=== PATIENT | female | born 1985 | race African-American/Black ===

== ENCOUNTER 2019-11-15 13:11 | Emergency (ER) | payer MEDICAID ==
[~2019-11-15] VITALS: Ht 165.1 cm; Wt 116.1 kg
--- OUTSIDE RECORDS SUMMARY | ~2019-11-15 | XMS | Encounter Summary ---
Demographics + + + | Address | [address] | | | [place] [address] | + + + | Home Phone | [phone] | + + + | Preferred Language | Unknown | + + + | Marital Status | Never | + + + | Gnosticism Affiliation | Unknown | + + + | Race | Unknown | + + + | Ethnic Group | Unknown | + + + Author + + + | Author | | + + + | Organization | | + + + | Address | [address] | | | [place] [address] | + + + | Phone | [phone] | + + + Care Team Providers + +------+ + | Care Director Of Infection Control Name | Role | Phone | + +------+ + | VAL Edwards | 3 | Unavailable | + +------+ + Reason for Visit + + | None recorded. | + + Instructions + + | 1. Lumbar radiculopathy | + + | urinalysis, dipstick, auto | + + | test, urine | + + | ketorolac 60 mg/2 mL intramuscular solution | + + | orphenadrine citrate 30 mg/mL injection solution | + + | cyclobenzaprine 10 mg tablet | + + | excuse from work | + + + + | Discussion Note | + + | Patient advised to followup if symptoms are not improving in 3 days, if symptoms worsen, | | or if new symptoms develop. | + + Plan of Care + + + + + | Reminders | | | Provider | | | | | | + + + + + | Appointments | None recorded. | | | + + + + + | Lab | Urinalysis, | 08/20/2016 | [facility] | | | Dipstick, Auto | | [facility] | + + + + + | | Test, | 08/20/2016 | [facility] | | | Urine | | [facility] | + + + + + | Referral | None recorded. | | | + + + + + | Procedures | None recorded. | | | + + + + + | Surgeries | None recorded. | | | + + + + + | Imaging | None recorded. | | | + + + + + Medications + + + + | Name | Start Date | | | | | | + + + + + +---+ | Adderall | | + +---+ | cyclobenzaprine 10 mg tablet Take 1 tablet | | | 3 times a day by oral route as needed. | | + +---+ | fluoxetine 10 mg capsule | | | Take 1 capsule every day by oral route. | | + +---+ | ketorolac 60 mg/2 mL intramuscular | | | solution Give 60mg IM now | | + +---+ | lithium carbonate ER 450 mg | | | tablet,extended release Take 3 tablets | | | every day by oral route. | | + +---+ | olanzapine 5 mg disintegrating tablet | | | PLACE 1-2 TABLET (5 MG) ON TOP OF THE | | | TONGUE WHERE IT WILL DISSOLVE, THEN | | | SWALLOW BY TRANSLINGUAL ROUTE ONCE DAILY | | + +---+ | orphenadrine citrate 30 mg/mL injection | | | solution Give 60mg IM now | | + +---+ Medications Administered + + + + | Name | Date | | + + + + + + + | ketorolac 60 mg/2 mL intramuscular | [id number] | | solutionGive 60mg IM now | | + + + | orphenadrine citrate 30 mg/mL injection | [id number] | | solutionGive 60mg IM now | | + + + Vitals + + + + + | Height | Weight | BMI | Blood Pressure | + + + + + | 5 ft 4 in | 194 lbs | 33.3 kg/m2 | 152/80 mm[Hg] | + + + + + Lab Results +-------+-------+-------+-------+-------+-------+-------+-------+-------+-------+-------+ | Date | Name | Speci | Resul | Inter | Descr | Value | Range | Statu | Addre | | | | | men | t | preta | iptio | | | s | ss | | | | | | | tion | n | | | | | | | | | | | | | | | | | | | | | | | | | | | | | | | | | | | | | | | | | | | | | | | | | | | | | | +-------+-------+-------+-------+-------+-------+-------+-------+-------+-------+-------+ +---+--------+---+---+---+--------+--------+---+---+--------+ | | Urinal | | | | Color | Yellow | | | Evergr | | | ysis, | | | | | | | | een | | | Dipsti | | | | | | | | Family | | | ck, | | | | | | | | | | | Auto | | | | | | | | Medici | | | | | | | | | | | ne PC: | | | | | | | | | | | [address] | [address] | | | | | | | | | | | [address] | | | | | | | | | | | [address] | | | | | | | | | | | [address], | | | | | | | | | | | [place] | | | | | | | | | | | rg | +---+--------+---+---+---+--------+--------+---+---+--------+ | | | | | | | Clear | | | Evergr | | | | | | | Clarit | | | | een | | | | | | | y | | | | Family | | | | | | | | | | | | | | | | | | | | | | Medici | | | | | | | | | | | ne PC: | | | | | | | | | | | [address] | | | [address] | [address] | | | | | | | | | | | [address] | | | | | | | | | | | [address] | | | | | | | | | | | [address], | | | | | | | | | | | [place] | | | | | | | | | | | rg | +---+--------+---+---+---+--------+--------+---+---+--------+ | | | | | | | Negati | | | Evergr | | | | | | | Glucos | ve | | | een | | | | | | | e | | | | Family | | | | | | | | | | | | | | | | | | | | | | Medici | | | | | | | | | | | ne PC: | | | | | | | | | | | [address] | | | [address] | | | | | | | | | | | [address] | | | | | | | | | | | [address] | | | | | | | | | | | [address], | | | | | | | | | | | [place] | | | | | | | | | | | rg | +---+--------+---+---+---+--------+--------+---+---+--------+ | | | | | | | Small | | | Evergr | | | | | | | Biliru | | | | een | | | | | | | bin | | | | Family | | | | | | | | | | | | | | | | | | | | | | Medici | | | | | | | | | | | ne PC: | | | | | | | | | | | [address] | | | | | | | | | | | [address] | | | | | | | | | | | [address] | | | | | | | | | | | [address], | | | | | | | | | | | [place] | | | | | | | | | | | rg | +---+--------+---+---+---+--------+--------+---+---+--------+ | | | | | | | Negati | | | Evergr | | | | | | | Ketone | ve | | | een | | | | | | | s | | | | Family | | | | | | | | | | | | | | | | | | | | | | Medici | | | | | | | | | | | ne PC: | | | | | | | | | | | [address] | [address] | | | | | | | | | | | [address] | | | | | | | | | | | [address] | | | | | | | | | | | [address], | | | | | | | | | | | [place] | | | | | | | | | | | rg | +---+--------+---+---+---+--------+--------+---+---+--------+ | | | | | | | 1.030 | | | Evergr | | | | | | | Specif | | | | een | | | | | | | ic | | | | Family | | | | | | | Gravit | | | | | | | | | | | y | | | | Medici | | | | | | | | | | | ne PC: | | | | | | | | | | | [address] | [address] | [address] | | | | | | | | | | | [address] | | | | | | | | | | | [address] | | | | | | | | | | | [address], | | | | | | | | | | | [place] | | | | | | | | | | | rg | +---+--------+---+---+---+--------+--------+---+---+--------+ | | | | | | Blood | Small | | | Evergr | | | | | | | | | | | een | | | | | | | | | | | Family | | | | | | | | | | | | | | | | | | | | | | Medici | | | | | | | | | | | ne PC: | | | | | | | | | | | [address] | | | | | | | | | | | [address] | | | | | | | | | | | [address] | | | | | | | | | | | [address], | | | | | | | | | | | [place] | | | | | | | | | | | rg | +---+--------+---+---+---+--------+--------+---+---+--------+ | | | | | | Ph | 5.5 | | | Evergr | | | | | | | | | | | een | | | | | | | | | | | Family | | | | | | | | | | | | | | | | | | | | | | Medici | | | | | | | | | | | ne PC: | | | | | | | | | | | [address] | | | | | | | | | | | [address] | | | | | | | | | | | [address] | | | | | | | | | | | [address], | | | | | | | | | | | [place] | | | | | | | | | | | rg | +---+--------+---+---+---+--------+--------+---+---+--------+ | | | | | | | 30+ | | | Evergr | | | | | | | Protei | | | | een | | | | | | | n | | | | Family | | | | | | | | | | | | | | | | | | | | | | Medici | | | | | | | | | | | ne PC: | | | | | | | | | | | [address] | | | [address] | [address] | | | | | | | | | | | [address] | | | | | | | | | | | [address] | | | | | | | | | | | [address], | | | | | | | | | | | [place] | | | | | | | | | | | rg | +---+--------+---+---+---+--------+--------+---+---+--------+ | | | | | | | 0.2 | | | Evergr | | | | | | | Urobil | | | | een | | | | | | | inogen | | | | Family | | | | | | | | | | | | | | | | | | | | | | Medici | | | | | | | | | | | ne PC: | | | | | | | | | | | [address] | | | | | | | | | | | [address] | | | | | | | | | | | [address] | | | | | | | | | | | [address], | | | | | | | | | | | [place] | | | | | | | | | | | rg | +---+--------+---+---+---+--------+--------+---+---+--------+ | | | | | | | Negati | | | Evergr | | | | | | | Nitrat | ve | | | een | | | | | | | e | | | | Family | | | | | | | | | | | | | | | | | | | | | | Medici | | | | | | | | | | | ne PC: | | | | | | | | | | | [address] | | | [address] | | [address] | | | | | | | | | | | [address] | | | | | | | | | | | [address] | | | | | | | | | | | [address], | | | | | | | | | | | [place] | | | | | | | | | | | rg | +---+--------+---+---+---+--------+--------+---+---+--------+ | | | | | | | Trace | | | Evergr | | | | | | | Leukoc | | | | een | | | | | | | ytes | | | | Family | | | | | | | | | | | | | | | | | | | | | | Medici | | | | | | | | | | | ne PC: | | | | | | | | | | | [address] | | [address] | | [address] | | | | | | | | | | | [address] | | | | | | | | | | | [address] | | | | | | | | | | | [address], | | | | | | | | | | | [place] | | | | | | | | | | | rg | +---+--------+---+---+---+--------+--------+---+---+--------+ Allergies +------+ + + + +-------+ | Code | Code System | Name | Reaction | Severity | Onset | +------+ + + + +-------+ | | | Influenza | | | | | | | Virus | | | | | | | Vaccines | | | | +------+ + + + +-------+ Problems + + + + + + | Name | Status | Onset Date | Source | | | | | | | | + + + + + + + +--------+ +---+ | Bipolar Disorder | Active | 10/19/2015 | | + +--------+ +---+ | Schizoaffective | Active | 06/10/2016 | | | Disorder | | | | + +--------+ +---+ | History of Alcohol | Active | | | | Abuse | | | | + +--------+ +---+ | History of Cannabis | Active | | | | Abuse | | | | + +--------+ +---+ Procedures + + + + + | Date | Name | Performed by | | | | | | | + + + + + +---+ + + | | Other Procedure | Information not available | +---+ + + | | Tonsillectomy | Information not available | +---+ + + Vaccine List None recorded. Social History + + +---+ | Smoking Status | Heavy Tobacco Smoker (02/07 | | | | PPD) | | + + +---+ Past Encounters + -------+ | 08/20/2016Lumbar RadiculopathyChenelle Irma, MARIAA: [address], | | [place] [address], Ph. | |Perla MARIAA Solis: [address], [place] [address], Ph. [phone] | + -------+ | 08/17/2016Thoracic NeuritisCharles LEE Sorenson: [address], [place], | | [place] [address], Ph. | |Andrzej Sorenson PA-C: [address], [place] [address], Ph. | + -------+ History of Present Illness Note:31 yo female here for recheck of back pain and right hip pain x 5 days. "Rig ht low back pain radiating around to hip and lateral thigh." Pt seen on 08/17 by Yas. Dx of Thoracic Neuritis. Administered Toradol and Norflex atos. . Pt states the pain got a bit better that night but the pain returned. Denies , n/t/w of the legs. No changes in bowel or bladder habits. Pain worse with sitting, bending and transitioning.Review of Systems:ROS as noted in the HPI Review of Systems None recorded. Physical Exam + + + | | General Adult Exam | + + + | Reported By: | Patient | + + + | Constitutional: | General Appearance: awake, alert, oriented | | | x 3, NAD, hydrated | + + + | Cardiovascular: | Heart: regular heart rate, no murmurs | + + + | Lungs: | Chest/Lungs: clear to auscultation | + + + | Skin: | Skin: clear | + + + | Notes: | <p>Lumbar spine: </p><p>General | | | appearance: A&O x 3, NAD, hydrated. | | | </p><p>Spine: No lateral shift present. | | | </p><p>Transitions in a gaurded | | | fashion</p><p>No bony tenderness or | | | alignment abnormality. Paraspinal | | | tenderness adjacent to L45 | | | right</p><p>Lower extremity strength and | | | sensation intact. </p><p>Positive SLR | | | right</p><p>Lower extremities: no swelling | | | or varicosities. </p> | + + +
--- OUTSIDE RECORDS SUMMARY | ~2019-11-15 | XMS | Continuity of Care Document ---
Demographics + + + | Address | [address] | | | [place] [address] | + + + | Home Phone | | + + + | Preferred Language | Unknown | + + + | Marital Status | Unknown | + + + | Religion Affiliation | Unknown | + + + | Race | Unknown | + + + | Ethnic Group | Unknown | + + + Author + + + | Author | [facility] | + + + | Organization | [facility] | + + + | Address | [address] | | | [place] [address] | + + + | Phone | | + + + Support + + + + + | Name | Relationship | Address | Phone | + + + + + | VAL Rosales | Caregiver | [address] | | | | | [place] [address] | | + + + + + | Agueda Jonas | Caregiver | Emergency | | | | | [facility], | | | | | [place] [address] | | + + + + + | FLOR OLIVA | Next Of [facility] | [place] [address] | | + + + + + Care Team Providers + + + + | Care Alligator Hunter Name | Role | Phone | + + + + | VAL Rosales | Unavailable | | + + + + Insurance Providers + + + + + | Payer Name | Policy Number | Subscriber Name | Relationship | + + + + + | [employer] | | LYDIA KINCAID | SELF | | | | BILLIONS | | + + + + + Chief Complaint and Reason for Visit + + + | Reason for Visit | PANIC ATTACK | + + + Problems Active Medical Problems + + + +--------+ | Problem | Onset Date | Recorded Date | Status | + + + +--------+ | Bipolar disorder | Unknown | 09/19/15 | Active | + + + +--------+ | Toothache | Unknown | 03/25/16 | Active | + + + +--------+ | Dental caries | Unknown | 03/25/16 | Active | + + + +--------+ | Anxiety | Unknown | 12/05/16 | Active | + + + +--------+ Medications Current Home Medications + +------+ +---------+ + + + + | Medicati | Dose | Units | Route | Directio | Days/Qty | Instruct | Start | | on | | | | ns | | ions | Date | + +------+ +---------+ + + + + | Amoxicil | 1 | EACH | ORAL | Twice | 10 Days | | 03/25/16 | | quinton/Pota | | | | Each Day | | | | | ssium | | | | | | | | | Clav | | | | | | | | | (Augment | | | | | | | | | in | | | | | | | | | 875-125 | | | | | | | | | Tablet) | | | | | | | | | 1 EACH | | | | | | | | | TABLET | | | | | | | | + +------+ +---------+ + + + + | CHLORHEX | 1 | ML | MISCELL | | | | | | IDINE | | | | | | | | | (CHLORHE | | | | | | | | | XIDINE | | | | | | | | | FLAVOR) | | | | | | | | | 1 ML | | | | | | | | | LIQUID | | | | | | | | + +------+ +---------+ + + + + | Ibuprofe | 800 | MG | ORAL | Every 8 | 14 | | 03/25/16 | | n | | | | Hours as | | | | | (Motrin) | | | | needed | | | | | 800 MG | | | | for Pain | | | | | TAB | | | | | | | | + +------+ +---------+ + + + + | [place] | 300 | MG | ORAL | | | | | | Carbonat | | | | | | | | | e 300 MG | | | | | | | | | CAP | | | | | | | | + +------+ +---------+ + + + + | Lorazepa | 1 | MG | ORAL | Daily as | 5 | | 12/05/16 | | m | | | | needed | | | | | (Ativan) | | | | for | | | | | 1 MG | | | | anxiety | | | | | TAB | | | | | | | | + +------+ +---------+ + + + + | Miconazo | 1 | SUPP.VAG | Vaginal | At | 7 | | 03/25/16 | | le | | | | Bedtime | | | | | Nitrate | | | | | | | | | (Monista | | | | | | | | | t 7 Vag | | | | | | | | | Supp) | | | | | | | | | 100 MG | | | | | | | | | SUPP | | | | | | | | + +------+ +---------+ + + + + | Quetiapi | 100 | MG | ORAL | | | | | | ne | | | | | | | | | Fumarate | | | | | | | | | | | | | | | | | | (Seroque | | | | | | | | | l) 100 | | | | | | | | | MG TAB | | | | | | | | + +------+ +---------+ + + + + Past Home Medications + + +---------+ + | Medication | Directions | Ordered | Status | + + +---------+ + | No Historical | | Unknown | Discontinued | | Medications . ., | | | | + + +---------+ + Social History + + + + + | Query | Response | Start Date | Stop Date | + + + + + | Smoking status/ | Current Every Day | | | | | Smoker | | | + + + + + Hospital Discharge Instructions No hospital discharge instructions. Plan of Care + + + | Discharge Date | 12/05/16 | + + + | Disposition | HOME | + + + | Condition at Discharge | Good | + + + | Instructions/Education Provided | Panic Attacks | + + + | Prescriptions | See Medications Section | + + + | Referrals | Linda RosalesP - | + + + Functional Status No functional status results. Allergies, Adverse Reactions, Alerts + +---------+ + +--------+ + | Allergen | Type | Severity | Reaction | Status | Last Updated | + +---------+ + +--------+ + | Influenza | Allergy | Unknown | | Active | 12/05/16 | | Virus | | | | | | | Vaccines | | | | | | + +---------+ + +--------+ + Immunizations No Known History of Immunizations. Vital Signs + + + + | Vital Reading | Collection Date/Time | Result | + + + + | Blood Pressure | 12/05/16 8:46pm | 127/82 | + + + + | Temperature | 12/05/16 8:46pm | 97.1 F | + + + + | Temperature Source | 12/05/16 8:46pm | Temporal | + + + + | Respiratory Rate | 12/05/16 8:46pm | 16 | + + + + | Pulse Rate | 12/05/16 8:46pm | 86 | + + + + | Bedside Pulse Oximetry | 12/05/16 8:46pm | 98 | + + + + | Height | 12/05/16 8:46pm | 5 ft 5 in | + + + + | Height | 12/05/16 8:46pm | 165.1 cm | + + + + | Weight | 12/05/16 8:46pm | 200 lb | + + + + | Weight | 12/05/16 8:46pm | 90.72 kg | + + + + | Body Mass Index | 12/05/16 8:46pm | 33.3 kg/m2 | + + + + Results No known relevant diagnostic tests, laboratory data and/or discharge summary. Procedures No Known History of Procedures. Encounters + + + + + + | Encounter | Location | Arrival/Admit | Discharge/Depar | Attending | | | | Date | t Date | Provider | + + + + + + | Departed | [facility] | 12/05/16 8:40pm | 12/05/16 9:30pm | Agueda Jonas | | Emergency | [facility] [place] | | | [place] | + + + + + + + + + | Encounter Diagnosis | Onset Date | + + + | Anxiety | | + + +"
--- OUTSIDE RECORDS SUMMARY | ~2019-11-15 | XMS | Encounter Summary ---
Demographics + + + | Address | [address] | | | [place] [address] | + + + | Home Phone | [phone] | + + + | Preferred Language | Unknown | + + + | Marital Status | Never | + + + | Moravian Affiliation | Unknown | + + + | Race | Unknown | + + + | Ethnic Group | Unknown | + + + Author + + + | Author | | + + + | Organization | | + + + | Address | [address] | | | [place] [address] | + + + | Phone | [phone] | + + + Care Team Providers + +------+ + | Care Bit Gatherer Name | Role | Phone | + +------+ + | VAL Edwards | 3 | Unavailable | + +------+ + Reason for Visit + + | None recorded. | + + Instructions + + | 1. Severe anxiety (panic) | + + | lorazepam 1 mg tablet | + + + + | Discussion Note | + + | [phone] | + + Patient educational handouts: No information available. Plan of Care + + + + + | Reminders | | | Provider | | | | | | + + + + + | Appointments | [facility] Exam 40 | 02/08/2017 10:40AM | VAL Edwards | + + + + + | Lab | None recorded. | | | + [...] | Adderall | | + +---+ | hydroxyzine pamoate 50 mg capsule Take 1 | | | capsule every 6 hours by oral route as | | | needed. | | + +---+ | lithium carbonate ER 450 mg | | | tablet,extended release Take 3 tablets | | | every day by oral route. | | + +---+ | lorazepam 1 mg tablet Take 1 tablet every | | | day by oral route as needed. | | + +---+ | ziprasidone 40 mg capsule | | | 1 cap BID | | + +---+ Medications Administered None recorded. Vitals + + + + + | Height | Weight | BMI | Blood Pressure | + + + + + | 5 ft 5 in | 194 lbs | 32.3 kg/m2 | 122/78 mm[Hg] | + + + + + Lab Results None recorded. Allergies +------+--------+ + + +--------+-------+ | Code | Code | Name | Reaction | Severity | Status | Onset | | | System | | | | | | +------+--------+ + + +--------+-------+ | | | Influenza | | | Active | | | | | Virus | | | | | | | | Vaccines | | | | | +------+--------+ + + +--------+-------+ Problems + + + + + + [...] | Smoking Status | Heavy Tobacco Smoker (2 | | | | PPD) | | + + +---+ Past Encounters + -------+ | 01/09/2017Severe Anxiety (Panic)Linda Rosales, [employer] HELPER: [address], [place], | | [place] [address], Ph. | |JEFFERSON EdwardsP: [address], [place] [address], Ph. | + -------+ | 12/22/2016MARIAA Valdez: [address], [place], [place] | | [address], Ph. | |MARIAA Link: [address], [place] [address], Ph. [phone] | + -------+ History of Present Illness Note:Patient here for panic attacks; she has a history of schizoaffective disorde r and bipolar. She is followed by Dr. Neri with [facility] and reports she has an appointment with him January 20. She is currently on [place] and [place], was seen in urgent care on 12/22 for anxiety and was given 50 mg capsule to take every 6 hours but repor ts it has not helped at all. She stopped taking her Adderall as she felt it was exacerbating her anxietey. She reports her sleep has diminished from 8-9 hours to around [address] to feel possible meg without psychosis. She is afraid she may start experiencing almanza llucinations and this is making her anxiety worse. She had to be seen in the ER due to panic and was given lorazepam which she does reports helped. She was on this in the past as well. Review of Systems + + + | | Moderate Female ROS | + + + | Reported By: | Patient | + + + | Cardiovascular: | Cardiovascular: chest pain, palpitations; | | | racing heart, states when panic hits she | | | feels paralyzed | + + + | Respiratory: | Respiratory: no wheezing, no shortness of | | | breath | + + + | Gastrointestinal: | Gastrointestinal: nausea | + + + | Integumentary: | Skin: pruritis; picking at skin worsens | | | when anxiety present | + + + | Neurologic: | Neurologic: no seizures, no headaches | + + + Physical Exam + + + | | Psychiatric Exam | + + + | Reported By: | Patient | + + + | Mental Status Exam: | Appearance: well-groomed, clean, normal | | | weight. Behavior: agitated. Speech: | | | pressured. Perception: no hallucinations. | | | Cognition: alert, oriented to situation, | | | oriented to time, oriented to place, | | | oriented to person, memory intact. | | | Intelligence: average. Mood: sad. Affect: | | | anxious, tearful. Insight: impaired. | | | Judgment: impaired. Thought Content: | | | unremarkable. Motor Activity: intact | + + +"
--- OUTSIDE RECORDS SUMMARY | ~2019-11-15 | XMS | Clinical Summary ---
Demographics + + + | Address | [address] | | | [place] [facility], [place] [address] | + + + | Home Phone | | + + + | Preferred Language | Unknown | + + + | Marital Status | A | + + + | Mandaeism Affiliation | Unknown | + + + | Race | Unknown | + + + | Ethnic Group | Not or | + + + Author + + + | Author | [facility] | + + + | Organization | [facility] | + + + | Address | [address] | | | [place] [address] | + + + | Phone | Unavailable | + + + Care Team Providers + +------+ + | Care Tooth Cutter Spur Name | Role | Phone | + +------+ + | Foreign Hernandez | PCP | | + +------+ + Conditions or Problems +---------+---------+---------+--------+---------+---------+---------+---------+---------+ | Problem | Problem | Onset | Status | Entry | Provide | Comment | Standar | Annotat | | Name | Code | Date | | Date | r | | d | e | | | | | | | | | Descrip | | | | | | | | | | tion | | +---------+---------+---------+--------+---------+---------+---------+---------+---------+ | HIGH | [id number] | | Active | | Jesus | | High | | | RISK | 08 | /09 | | /09 | Neri | | risk | | | MEDICAT | (SNOMED | | | | MD | | drug | | | ION | CT) | | | | | | monitor | | | MANAGEM | | | | | | | ing | | | ENT | | | | | | | | | +---------+---------+---------+--------+---------+---------+---------+---------+---------+ | OTHER | F31.89 | | Active | | Foreign | | Other | | | SPECIFI | (ICD-10 | /29 | | /30 | Ball | | bipolar | | | ED | -CM) | | | | SUPERVISOR POLICY CHANGE CLERKS | | | | | BIPOLAR | | | | | | | disorde | | | AND | | | | | | | r | | | RELATED | | | | | | | | | | | | | | | | | | | | DISORDE | | | | | | | | | | R | | | | | | | | | +---------+---------+---------+--------+---------+---------+---------+---------+---------+ Medications + + + + + + + + | Medication | Instructio | Start Date | Stop Date | Generic | NDC | Provider | | | ns | | | Name | | | + + + + + + + + | HALOPERIDO | start with | | | HALOPERIDO | [id number] | Jesus | | L 5 MG | 1/2 tab | | | L | 1 | Daron MD | | TABS | and | | | | | | | | incraesebt | | | | | | | | o a whole | | | | | | | | tab after | | | | | | | | 2 days. | | | | | | | | This | | | | | | | | replaces | | | | | | | | olanzapine | | | | | | + + + + + + + + | PROZAC 10 | take 1 cap | | | FLUOXETINE | [id number] | Jesus | | MG CAPS | daily for | | | HCL | 2 | Daron ASH | | | 1 week | | | | | | | | then take | | | | | | | | 2 caps | | | | | | | | thereafter | | | | | | | | for mood | | | | | | | | and | | | | | | | | anxiety | | | | | | + + + + + + + + | OLANZAPINE | 1 tab | | | OLANZAPINE | [id number] | Jesus | | 5 MG TABS | daily, | | | | 1 | Daron ASH | | | increase | | | | | | | | to 2 tabs | | | | | | | | if needed | | | | | | | | for sleep | | | | | | | | and mood | | | | | | + + + + + + + + | SEROQUEL | start with | | | QUETIAPINE | [id number] | Jesus | | 200 MG | 02/07 tab | | | FUMARATE | 0 | Daron ASH | | TABS | at | | | | | | | | bedtime, | | | | | | | | and | | | | | | | | increase | | | | | | | | to a whole | | | | | | | | tab after | | | | | | | | 3 days. | | | | | | | | If mood is | | | | | | | | not | | | | | | | | better in | | | | | | | | 2 weeks | | | | | | | | increase | | | | | | | | to a | | | | | | | | tablet and | | | | | | | | a half. | | | | | | + + + + + + + + | GEODON 20 | take with | | | ZIPRASIDON | [id number] | Jesus | | MG CAPS | the 40mg | | | E HCL | 0 | Daron MD | | | capsule in | | | | | | | | the | | | | | | | | morning as | | | | | | | | | | | | | | | | instructed | | | | | | | | on the | | | | | | | | 40mg | | | | | | | | bottle. | | | | | | + + + + + + + + | LITHIUM | take 3 | | | LITHIUM | [id number] | Jesus | | CARBONATE | tabs daily | | | CARBONATE | 5 | Daron MD | | ER 450 MG | for mood. | | | | | | | CR-TABS | Get labs | | | | | | | | after 2 | | | | | | | | weeks, | | | | | | + + + + + + + + | MARY GRACE 60 | 1 tab BID | | | SOLEDADN | [id number] | Jesus | | MG CAPS | for mood | | | E HCL | 0 | Neri MD | | | after | | | | | | | | finishing | | | | | | | | 40mg cap | | | | | | + + + + + + + + | YUNIERDON 40 | start with | | | EUGENIERASIDON | [id number] | Jesus | | MG CAPS | 1 cap in | | | E HCL | 0 | Daron MD | | | the eveing | | | | | | | | fo 4 | | | | | | | | days, then | | | | | | | | add on a | | | | | | | | 20mg cap | | | | | | | | qAM for 4 | | | | | | | | more days, | | | | | | | | then take | | | | | | | | 2 caps | | | | | | | | BID | | | | | | + + + + + + + + | ADDERALL | 1/2 tab in | | | AMPHETAMIN | [id number] | Jesus | | 30 MG TABS | AM and | | | E-DEXTROAM | 1 | Daron ASH | | | after | | | PHETAMINE | | | | | lunch for | | | | | | | | focus | | | | | | + + + + + + + + | HALOPERIDO | start with | | | HALOPERIDO | [id number] | Jesus | | L 5 MG | 1/2 tab | | | L | 1 | Daron ASH | | TABS | and | | | | | | | | incraesebt | | | | | | | | o a whole | | | | | | | | tab after | | | | | | | | 2 days. | | | | | | | | This | | | | | | | | replaces | | | | | | | | olanzapine | | | | | | + + + + + + + + | PROZAC 10 | take 1 cap | | | FLUOXETINE | [id number] | Jesus | | MG CAPS | daily for | | | HCL | 2 | Daron ASH | | | 1 week | | | | | | | | then take | | | | | | | | 2 caps | | | | | | | | thereafter | | | | | | | | for mood | | | | | | | | and | | | | | | | | anxiety | | | | | | + + + + + + + + | OLANZAPINE | 1 tab | | | OLANZAPINE | [id number] | Jesus | | 5 MG TABS | daily, | | | | 1 | Daron ASH | | | increase | | | | | | | | to 2 tabs | | | | | | | | if needed | | | | | | | | for sleep | | | | | | | | and mood | | | | | | + + + + + + + + | ADDERALL | 1/2 tab in | | | AMPHETAMIN | [id number] | Jesus | | 20 MG TABS | AM and | | | E-DEXTROAM | 1 | Daron ASH | | | after | | | PHETAMINE | | | | | lunch for | | | | | | | | focus | | | | | | + + + + + + + + | SEROQUEL | start with | | | QUETIAPINE | [id number] | Jesus | | 200 MG | 1/2 tab | | | FUMARATE | 0 | Daron ASH | | TABS | at | | | | | | | | bedtime, | | | | | | | | and | | | | | | | | increase | | | | | | | | to a whole | | | | | | | | tab after | | | | | | | | 3 days. | | | | | | | | If mood is | | | | | | | | not | | | | | | | | better in | | | | | | | | 2 weeks | | | | | | | | increase | | | | | | | | to a | | | | | | | | tablet and | | | | | | | | a half. | | | | | | + + + + + + + + | LITHIUM | start with | | | LITHIUM | [id number] | Jesus | | CARBONATE | 1 tab and | | | CARBONATE | 5 | Daron ASH | | ER 450 MG | increase | | | | | | | CR-TABS | to 2 tabs | | | | | | | | after 3 | | | | | | | | days for | | | | | | | | mood. Get | | | | | | | | labs | | | | | | | | after 2 | | | | | | | | weeks, | | | | | | + + + + + + + + Medications Administered No information available. Allergies, Adverse Reactions, Alerts No information available. Results +------+------+-------+------+-------+------+ + | Date | Name | Value | Unit | Range | Flag | Descriptio | | | | | | | | n | +------+------+-------+------+-------+------+ + + + | Lab Report: [facility] | + + + + + +--------+ +---+ + | | LITHIUM | 0.71 | mmol/L | 0.60-1.20 | N | lithium, | | | BLD | | | | | blood | + + + +--------+ +---+ + | | ZZ-GE-UNK | 05/12/16 | | | N | GE use | | | | | | | | only - for | | | | | | | | LinkLogic | | | | | | | | import | | | | | | | | when terms | | | | | | | | are not | | | | | | | | otherwise | | | | | | | | specified | + + + +--------+ +---+ + + + | Lab Report: Chlamydia Trachom/GC by [facility] | + + + + + +---+--------+---+ + | | ZZ-GE-UNK | Not | | NOTDET | N | GE use | | | | Detected | | | | only - for | | | | | | | | LinkLogic | | | | | | | | import | | | | | | | | when terms | | | | | | | | are not | | | | | | | | otherwise | | | | | | | | specified | + + + +---+--------+---+ + + + | Lab Report: Beta Hcg Serum | + + + + + +---+ +---+ + | | BETA-HCG | Negative | | Negative | N | beta HCG, | | | QL | | | | | serum, | | | | | | | | qualitativ | | | | | | | | e | + + + +---+ +---+ + + + | Lab Report: Vitamin B12 | + + + +-----+-----+-------+---------+---+ + | | B12 | 372 | pg/mL | 180-914 | N | vitamin | | | | | | | | b12, serum | + +-----+-----+-------+---------+---+ + + + | Lab Report: [facility] | + + + + +---------+--------+ +---+ + | | LITHIUM | 0.62 | mmol/L | 0.60-1.20 | N | lithium, | | | BLD | | | | | blood | + + +---------+--------+ +---+ + | | ZZ-GE-UNK | Unknown | | | N | GE use | | | | | | | | only - for | | | | | | | | LinkLogic | | | | | | | | import | | | | | | | | when terms | | | | | | | | are not | | | | | | | | otherwise | | | | | | | | specified | + + +---------+--------+ +---+ + + + | Lab Report: Comprehensive Metabolic Panel, Coronary Risk Panel, Thyroid ... | + + + + +--------+ + +---+ + | | TSH ULTRA | 1.517 | u[iU]/mL | 0.360-4.80 | N | thyroid | | | | | | 0 | | stimulatin | | | | | | | | g hormone | | | | | | | | (TSH), | | | | | | | | ultra | | | | | | | | sensitive | + + +--------+ + +---+ + | | C-LDL/C-HD | 1.6 | | | N | LDL/HDL | | | L | | | | | ratio, | | | | | | | | serum | + + +--------+ + +---+ + | | CHOL/HDL | 3.1 | | | N | cholestero | | | | | | | | l/HDL | | | | | | | | ratio, | | | | | | | | serum | + + +--------+ + +---+ + | | VLDL | 29 | mg/dL | 6-28 | H | very low | | | | | | | | density | | | | | | | | lipoprotei | | | | | | | | ns | + + +--------+ + +---+ + | | LDL | 87 | mg/dL | <110 | N | Cholestero | | | | | | | | l in LDL | | | | | | | | [Mass/volu | | | | | | | | me] in | | | | | | | | Serum or | | | | | | | | Plasma | + + +--------+ + +---+ + | | HDL | 55 | mg/dL | >39 | N | Cholestero | | | | | | | | l in HDL | | | | | | | | [Mass/volu | | | | | | | | me] in | | | | | | | | Serum or | | | | | | | | Plasma | + + +--------+ + +---+ + | | TRIGLYCERI | 147 | mg/dL | 30-140 | H | Triglyceri | | | DE | | | | | de | | | | | | | | [Mass/volu | | | | | | | | me] in | | | | | | | | Serum or | | | | | | | | Plasma | + + +--------+ + +---+ + | | CHOLESTERO | 171 | mg/dL | 50-200 | N | Cholestero | | | L | | | | | l | | | | | | | | [Mass/volu | | | | | | | | me] in | | | | | | | | Serum or | | | | | | | | Plasma | + + +--------+ + +---+ + | | SGPT (ALT) | 23 | U/L | 12-78 | N | alanine | | | | | | | | aminotrans | | | | | | | | ferase | | | | | | | | (SGPT), | | | | | | | | serum | + + +--------+ + +---+ + | | SGOT (AST) | 22 | U/L | 12-37 | N | aspartate | | | | | | | | aminotrans | | | | | | | | ferase | | | | | | | | (SGOT), | | | | | | | | serum | + + +--------+ + +---+ + | | ALK PHOS | 54 | U/L | 40-126 | N | alkaline | | | | | | | | phosphatas | | | | | | | | e, serum | + + +--------+ + +---+ + | | BILI TOTAL | 0.4 | mg/dL | 0.1-1.0 | N | bilirubin, | | | | | | | | serum, | | | | | | | | total | + + +--------+ + +---+ + | | A/G RATIO | 1.3 | | 0.8-1.8 | N | albumin/gl | | | | | | | | obulin | | | | | | | | ratio, | | | | | | | | serum | + + +--------+ + +---+ + | | GLOBULIN | 3.2 | g/dL | 2.2-4.0 | N | globulins, | | | TOT | | | | | serum, | | | | | | | | total | + + +--------+ + +---+ + | | ALBUMIN | 4.0 | g/dL | 3.4-5.0 | N | albumin, | | | | | | | | serum | + + +--------+ + +---+ + | | PROTEIN, | 7.2 | g/dL | 6.4-8.2 | N | protein, | | | TOT | | | | | total, | | | | | | | | serum | + + +--------+ + +---+ + | | CALCIUM | 9.4 | mg/dL | 8.5-10.1 | N | calcium, | | | | | | | | serum | + + +--------+ + +---+ + | | GFRC | >60 | mL/min/1.7 | 60- | N | Glomerular | | | | | 3m2 | | | | | | | | | | | Filtration | | | | | | | | Rate | | | | | | | | Calculatio | | | | | | | | n | + + +--------+ + +---+ + | | BUN/CREAT | 18.3 % | | 12.0-20.0 | N | urea | | | | | | | | nitrogen/c | | | | | | | | reatinine | | | | | | | | ratio, | | | | | | | | serum | + + +--------+ + +---+ + | | CREATININE | 0.71 | mg/dL | 0.40-1.00 | N | creatinine | | | | | | | | , serum | + + +--------+ + +---+ + | | BUN | 13 | mg/dL | 8-24 | N | urea | | | | | | | | nitrogen, | | | | | | | | blood | + + +--------+ + +---+ + | | GLUCOSE | 101 | mg/dL | 70-99 | H | blood | | | SER | | | | | glucose | + + +--------+ + +---+ + | | ANION GAP | 7 | mmol/L | 6-16 | N | anion gap, | | | | | | | | serum | + + +--------+ + +---+ + | | CO2 | 31 | mmol/L | 21-32 | N | carbon | | | | | | | | dioxide, | | | | | | | | venous | | | | | | | | blood | + + +--------+ + +---+ + | | CHLORIDE | 102 | mmol/L | 98-108 | N | chloride, | | | | | | | | serum | + + +--------+ + +---+ + | | POTASSIUM | 4.6 | mmol/L | 3.5-5.5 | N | potassium, | | | | | | | | serum | + + +--------+ + +---+ + | | SODIUM | 140 | mmol/L | 136-145 | N | sodium, | | | | | | | | serum | + + +--------+ + +---+ + + + | Lab Report: CBC with Auto Diff | + + + + +------+ + +---+ + | | ABSOLUTE | 0.06 | 10*3/uL | 0.00-0.23 | N | Absolute | | | BAS | | | | | Basophils | + + +------+ + +---+ + | | EOS ABSLT | 0.35 | 10*3/uL | 0.00-0.68 | N | Eosinophil | | | | | | | | Absolute | | | | | | | | Count | + + +------+ + +---+ + | | ABSOLUTE | 0.48 | 10*3/uL | 0.16-1.47 | N | Absolute | | | MON | | | | | Monocytes | + + +------+ + +---+ + | | LYMPHOCYTA | 2.24 | 10*3/uL | 0.84-5.20 | N | lymphocyte | | | BS | | | | | s, | | | | | | | | absolute | + + +------+ + +---+ + | | ANC | 6.79 | 10*3/mm3 | 1.96-9.15 | N | neutrophil | | | | | | | | count, | | | | | | | | blood | + + +------+ + +---+ + | | NRBCS/100W | 0.0 | % | 0.0-0.2 | N | nucleated | | | BC | | | | | red blood | | | | | | | | cells as | | | | | | | | percent of | | | | | | | | blood | | | | | | | | leukocytes | + + +------+ + +---+ + | | IMM GRANU | 0 | % | 0-1 | N | immature | | | % | | | | | granulocyt | | | | | | | | es, | | | | | | | | percentage | | | | | | | | of total | | | | | | | | cells, | | | | | | | | blood | + + +------+ + +---+ + | | BASOPHIL % | 1 | % | 0-2 | N | basophils | | | | | | | | as percent | | | | | | | | of blood | | | | | | | | leukocytes | + + +------+ + +---+ + | | EOSINOPHIL | 4 | % | 0-6 | N | eosinophil | | | % | | | | | s as | | | | | | | | percent of | | | | | | | | blood | | | | | | | | leukocytes | + + +------+ + +---+ + | | MONOCYTE % | 5 | % | 4-13 | N | monocytes | | | | | | | | as percent | | | | | | | | of blood | | | | | | | | leukocytes | + + +------+ + +---+ + | | LYMPHS % | 23 | % | 21-46 | N | lymphocyte | | | | | | | | s as | | | | | | | | percent of | | | | | | | | blood | | | | | | | | leukocytes | + + +------+ + +---+ + | | PMN % | 68 | % | 41-73 | N | neutrophil | | | | | | | | s as | | | | | | | | percent of | | | | | | | | blood | | | | | | | | leukocytes | + + +------+ + +---+ + | | MPV | 10.2 | fL | 9.1-12.4 | N | mean | | | | | | | | platelet | | | | | | | | volume | + + +------+ + +---+ + | | PLATELETS | 392 | 10*3/mm3 | 150-400 | N | platelet | | | | | | | | count | + + +------+ + +---+ + | | RDW | 13.9 | % | 11.7-14.2 | N | red blood | | | | | | | | cell | | | | | | | | distributi | | | | | | | | on width | + + +------+ + +---+ + | | RDW-SD | 45.5 | fL | 35.1-46.3 | N | red blood | | | | | | | | cell | | | | | | | | distributi | | | | | | | | on width, | | | | | | | | size | | | | | | | | density | + + +------+ + +---+ + | | MCHC RBC | 31.2 | g/dL | 31.5-36.5 | L | mean | | | | | | | | corpuscula | | | | | | | | r | | | | | | | | hemoglobin | | | | | | | | | | | | | | | | concentrat | | | | | | | | ion, RBC | + + +------+ + +---+ + | | MCH | 28.1 | pg | 26.0-34.0 | N | mean | | | | | | | | corpuscula | | | | | | | | r | | | | | | | | hemoglobin | | | | | | | | , RBC | + + +------+ + +---+ + | | MCV | 90 | fL | 80-100 | N | mean | | | | | | | | corpuscula | | | | | | | | r volume, | | | | | | | | RBC | + + +------+ + +---+ + | | HCT | 39.4 | % | 33.0-51.0 | N | hematocrit | | | | | | | | , blood | + + +------+ + +---+ + | | HGB | 12.3 | g/dL | 11.5-16.0 | N | hemoglobin | | | | | | | | , blood | + + +------+ + +---+ + | | RBC | 4.38 | 10*6/mm3 | 3.80-5.20 | N | erythrocyt | | | | | | | | e (RBC) | | | | | | | | count | + + +------+ + +---+ + | | WBC | 9.95 | 10*3/mm3 | 4.00-11.30 | N | leukocyte | | | | | | | | count, | | | | | | | | blood | + + +------+ + +---+ + Plan of Care + + + + | Type | Date | Detail | + + + + | Pending order | | [facility] | + + + + | Pending order | | Lipid Profile | + + + + | Pending order | | Comprehensive Metabolic | | | | Panel | + + + + | Pending order | | TSH | + + + + | Pending order | | [facility] | + + + + | Pending order | | [facility] | + + + + | Pending order | | TSH | + + + + | Pending order | | CBC w/ Auto Diff | + + + + | Pending order | | B-12 | + + + + | Pending order | | Comprehensive Metabolic | | | | Panel | + + + + | Pending order | | Lipid Profile | + + + + Procedures + + + + + | Code | Procedure Name | Date | Entry Date | + + + + + | TSH 06509 | TSH | | | + + + + + | LI [address] | [facility] | | | + + + + + | RISK 98427 | Lipid Profile | | | + + + + + | CHEM PROF | Comprehensive | | | | | Metabolic Panel | | | + + + + + | VIT B12 62598 | B-12 | | | + + + + + | CBC AUTO 50911 | CBC w/ Auto Diff | | | + + + + + | [id number] | Mental Health | | | | | Assessment ([id number]) | | | + + + + + Vital Signs No information available. Social History No information available."
--- OUTSIDE RECORDS SUMMARY | ~2019-11-15 | XMS | Clinical Summary ---
Demographics + + + | Address | [address] | | | [place] [facility] [place] [address] | + + + | Home Phone | | + + + | Preferred Language | Unknown | + + + | Marital Status | A | + + + | Tenriism Affiliation | Unknown | + + + | Race | Unknown | + + + | Ethnic Group | Not or | + + + Author + + + | Author | [facility] | + + + | Organization | [facility] | + + + | Address | [address] | | | [place] [address] | + + + | Phone | Unavailable | + + + Care Team Providers + +------+ + | Care Paint Line Supervisor Name | Role | Phone | + [...] tion | | +---------+---------+---------+--------+---------+---------+---------+---------+---------+ | HIGH | [phone] | | Active | | Jesus | [...] ED | -CM) | | | | TIPPLE REPAIRER | | | | | BIPOLAR | [...] start with | | | HALOPERIDO | [id number] | Jesus | | L 5 MG [...] 1 cap | | | FLUOXETINE | [id number] | Jesus | | MG CAPS | [...] 1 tab | | | OLANZAPINE | [id number] | Jesus | | 5 MG TABS [...] start with | | | QUETIAPINE | [id number] | Jeuss | | 200 MG | 02/07 tab [...] take with | | | ZIPRASIDON | [id number] | Jesus | | MG CAPS | [...] take 3 | | | LITHIUM | [id number] | Jesus | | CARBONATE | tabs [...] tab BID | | | SOLEDADN | [id number] | Jesus | | MG CAPS | [...] start with | | | EUGENIERASIDON | [id number] | Jesus | | MG CAPS | [...] tab in | | | AMPHETAMIN | [id number] | Jesus | | 30 MG TABS [...] start with | | | HALOPERIDO | [id number] | Jesus | | L 5 MG [...] 1 cap | | | FLUOXETINE | [id number] | Jesus | | MG CAPS | [...] 1 tab | | | OLANZAPINE | [id number] | Jesus | | 5 MG TABS [...] tab in | | | AMPHETAMIN | [id number] | Jesus | | 20 MG TABS [...] start with | | | QUETIAPINE | [id number] | Jesus | | 200 MG | [...] start with | | | LITHIUM | [id number] | Jesus | | CARBONATE | 1 [...] +------+------+-------+------+-------+------+ + + + | Lab Report: [facility] | + + + + + +--------+ [...] +-----+-----+-------+---------+---+ + + + | Lab Report: [facility] | + + + + +---------+--------+ +---+ [...] + + | Pending order | | [facility] | + + + + | Pending order | | Lipid Profile | + + + + | Pending order | | Comprehensive Metabolic | | | | Panel | + + + + | Pending order | | TSH | + + + + | Pending order | | [facility] | + + + + | Pending order | | [facility] | + + + + | Pending [...] + + + + + | TSH 18247 | TSH | | | + + + + + | [place] [address] | [facility] | | | + + + + + | RISK 14805 | Lipid Profile | | | + + + + + | CHEM PROF | Comprehensive | | | | | Metabolic Panel | | | + + + + + | VIT B12 85340 | B-12 | | | + + + + + | CBC AUTO 28954 | CBC w/ Auto Diff | | | + + + + + | [id number] | Mental Health | | | | | Assessment ([id number]) | | | + + + + + Vital Signs No information available. Social History No information available."
--- OUTSIDE RECORDS SUMMARY | ~2019-11-15 | XMS | Encounter Summary ---
Demographics + + + | Address | [address] | | | [place] [address] | + + + | Home Phone | [phone] | + + + | Preferred Language | Unknown | + + + | Marital Status | Never | + + + | Church Affiliation | Unknown | + + + | Race | Unknown | + + + | Ethnic Group | Unknown | + + + Author + + + | Author | | + + + | Organization | | + + + | Address | [address] | | | [place] [address] | + + + | Phone | [phone] | + + + Care Team Providers + +------+ + | Care Route Cdl Driver Name | Role | Phone | + +------+ + | VAL Edwards | 3 | Unavailable | + +------+ + Reason for Visit + + | None recorded. | + + Instructions + + | 1. Thoracic neuritis | + + | ketorolac 60 mg/2 mL intramuscular solution | + + | orphenadrine citrate 30 mg/mL injection solution | + + | back pain: care instructions | + + | excuse from work | + + + + | Discussion Note | + + | Medications as ordered. Follow-up in 3-5 days if further concerns. | + + Plan of Care + [...] mL intramuscular | | | solution Give 2ml IM now | | + +---+ | [...] | ketorolac 60 mg/2 mL intramuscular | [id number]:00 | | solutionGive 2ml IM now | | + + + | orphenadrine citrate 30 mg/mL injection | [id number]:45:00 | | solutionGive 60mg IM now | | + + + Vitals + + + + + | Height | Weight | BMI | Blood Pressure | + + + + + | 5 ft 4 in | 199 lbs 16 oz | 34.3 kg/m2 | 142/88 mm[Hg] | + + + + + Lab Results None recorded. Allergies +---------+ + + + +-------+ | Code | Code System | Name | Reaction | Severity | Onset | +---------+ + + + +-------+ | | | Influenza | | | | | | | Virus | | | | | | | Vaccines | | | | +---------+ + + + +-------+ | [id number] | RxNorm | Latuda | | | | +---------+ + + + +-------+ Problems + + [...] | + + +---+ Past Encounters + ----+ | 08/17/2016Thoracic NeuritisCharles LEE Sorenson: [address], | | [place] [address], Ph. | |Andrzej Sorenson PA-C: [address] [place] [address], Ph. [phone] | + ----+ History of Present Illness Note:Low back pain without known injury. Denies fever chills cough congestion na usea vomiting change in bowel and bladder or other vaginal symptoms.Review of Systems:ROS as noted in the HPI Review of Systems None recorded. Physical Exam +--------+ + | | | +--------+ + | Notes: | Eupneic. Warm dry pink no acute distress | | | no bruising swelling or rash across her | | | back. DTRs are equal. Strong stance. | | | Describes muscular low back pain. Good | | | strong stance heel toe walk and deep knee | | | bend normal. | +--------+ +"
--- OUTSIDE RECORDS SUMMARY | ~2019-11-15 | XMS | Encounter Summary ---
Demographics + + + | Address | [address] | | | [place] [address] | + + + | Home Phone | [phone] | + + + | Preferred Language | Unknown | + + + | Marital Status | Never | + + + | Mosque Affiliation | Unknown | + + + | Race | Unknown | + + + | Ethnic Group | Unknown | + + + Author + + + | Author | | + + + | Organization | | + + + | Address | [address] | | | [place] [address] | + + + | Phone | [phone] | + + + Care Team Providers + +------+ + | Care Construction Grip Name | Role | Phone | + +------+ + | VAL Edwards | 3 | Unavailable | + +------+ + Reason for Visit + + | None recorded. | + + Instructions + + | 1. Anxiety | + + | Vistaril 50 mg capsule | + + | excuse from work | + + + + | Discussion Note | + + | Patient has an appointment with Dr. Neri her Psychiatrist in 2 weeks. She is advised | | to go to the ED if her symptoms worsen or new symptoms develop. | + + Plan [...] | Adderall | | + +---+ | lithium carbonate ER 450 mg | | | tablet,extended release Take 3 tablets | | | every day by oral route. | | + +---+ | Vistaril 50 mg capsule Take 1 capsule | | | every 6 hours by oral route as needed. | | + +---+ | ziprasidone 40 mg capsule | | | 1 cap BID | | + +---+ Medications Administered None recorded. Vitals + + + + + | Height | Weight | BMI | Blood Pressure | + + + + + | 5 ft 5 in | 195 lbs 16 oz | 32.6 kg/m2 | 118/82 mm[Hg] | + + + + + [...] + +---+ Past Encounters + -------+ | 12/22/2016[facility]: [address] | | [phone], Ph. | |[facility] Link[facility]: [address] [phone], Ph. | + -------+ History of Present Illness Note:31 YO female w/ hx of schizoeffective disorder and anxiety, c/o increased an xiety in the last few days. Reports chest tightness, difficulty getting a full breath, racin g thoughts and excessive worry. Denies thoughts of injuring herself or others. Denies halluc inations.Review of Systems:ROS as noted in the HPI Review of Systems None recorded. Physical Exam + + + | | Psychiatric Exam | + + + | Reported By: | Patient | + + + | Mental Status Exam: | Appearance: well-groomed, clean, normal | | | weight. Behavior: eye contact, | | | cooperative, agitated. Speech: fluent, | | | clear, normal volume. Perception: no | | | hallucinations. Cognition: alert, oriented | | | to situation, oriented to time, oriented | | | to place, oriented to person, memory | | | intact. Intelligence: below average. Mood: | | | irritable. Affect: pleasant. Insight: | | | intact. Judgment: intact. Thought | | | Processes: intact. Thought Content: | | | unremarkable. Motor Activity: intact | + + + | Musculoskeletal System: | Musculoskeletal System normal ROM. Gait | | | And Stance (normal) gait and stance | + + +"
[2019-11-15] MEDS ORDERED: SEROQUEL300 MG PO (14:16)
[2019-11-15] MEDS ORDERED: CYMBALTA30 MG PO (14:17)
[2019-11-15] MEDS ORDERED: SEROQUEL100 MG PO (14:17)
[2019-11-15] MEDS ORDERED: LITHIUM CARBON600 MG PO (14:18)
[2019-11-15] MEDS ORDERED: BUSPIRONE HCL10 MG PO (14:18)
== END 2019-11-16 12:11 | disposition home or self-care (01) ==
LOC: ED 13:11
DX: F22 Delusional disorders (principal); F31.9 Bipolar disorder, unspecified; F17.200 Nicotine dependence, unspecified, uncomplicated; Z88.8 Allergy status to other drugs, medicaments and biological substances; Z79.899 Other long term (current) drug therapy
CPT/HCPCS: 80053; 80176; 80178; 81001; 84443; 84703; 85025; 99285; G0480